=== PATIENT | male | born 1960 | race Caucasian/White ===

== ENCOUNTER 2020-09-15 00:45 | Outpatient (CLI) | payer OTHER, SELFPAY ==
[2020-09-15 20:28] LABS: SARS-CoV-2 RNA PCR Negative
== END 2020-09-15 00:46 | disposition home or self-care (01) ==
LOC: ANHCOVIDDT 00:45
PROVIDERS: PCP Family Medicine Sports Medicine; Visit Provider Internal Medicine Gastroenterology
DX: Z01.812 Encounter for preprocedural laboratory examination (principal); Z20.828 Contact with and (suspected) exposure to other viral communicable diseases
CPT/HCPCS: 87635; C9803; U0003

== ENCOUNTER 2020-09-18 01:06 | Day surgery (SDC) | payer OTHER, SELFPAY ==
[2020-09-12 15:08] VITALS: BMI 36.8
[2020-09-18 09:26] VITALS: BP 128/73; PULSE 65; RESP 18; TEMP 36.5; O2SAT 94; BMI 38.1
[2020-09-18] MEDS: LACTATED RINGERS 1,000 ML 150 ML IV CONT (09:36)
--- NOTE | 2020-09-18 09:43 | P.PNAN_ITS ---
Anes - Initial Pre Proc Eval Procedure: Operation Date: 09/18/20 10:00 Proposed Procedures p Screening Colonoscopy - Thomas Hadley MD Date/Time: 09/18/20 09:43 Surgeon: Thomas Hadley MD Pre Op Diagnosis: Neoplasm Screening,Hx Of Colon Polyps Patient Data Age: 60 Gender: M Height: 5 ft 9 in Weight: 117.1 kg Last Vital Signs Temp 36.5 C 09/18/20 09:26 Pulse 65 09/18/20 09:26 Resp 18 09/18/20 09:26 BP 128/73 09/18/20 09:26 Pulse Ox 94 09/18/20 09:26 Allergies Allergy/AdvReac Type Severity Reaction Status Date / Time No Known Allergies Allergy Unverified 09/18/20 09:24 Home Medications Medication Instructions Recorded Confirmed Type atorvastatin 10 mg PO DAILY 09/12/20 09/12/20 History lisinopril-hydrochlorothiazide 1 tablet PO DAILY 09/12/20 09/12/20 History Patient hx anesthesia problems: none Family hx anesthesia problems: none [facility] Past Medical History Medical History Hyperlipidemia Hypertension SHWETA (obstructive sleep apnea) Social History Social History Smoking packs per day: 1 Smoking cigarettes per day: 20.0 Years smoked: 20 Smoking pack-years: 20.00 Smoking status: Former smoker Tobacco type: cigarettes Alcohol intake: never Substance use: never Substance use type: does not use Living arrangements: with family Spiritual care concerns: No Anes - Eval Final PreProcedure Day of Procedure 09/18/20 09:43 Patient weight: obese Heart: regular rate and rhythm Lungs: clear to auscultation Airway: Mallampati scale class II Neurological: alert and oriented Last oral intake: >/= 8 hours ASA classification: III Emergent: no Anesthetic plan: proceed Anesthesia type and monitoring: general GIVS and standard monitoring Informed Consent: The patient's anesthetic plan and its attendant risks and benefits were discussed with the patient/family/POA. Questions were solicited and answers provided to the satisfaction of the patient/family/POA.
--- NOTE | 2020-09-18 09:44 | P.CONGI_ITS ---
Assessment and Plan Assessment and plan (1) History of colon polyps: Code(s): Z86.010 - Personal history of colonic polyps Status: Acute Assessment and Plan: Patient has a history of colon polyps. Plan is for surveillance colonoscopy now and at intervals in the future. This will depend on findings at time of endoscopy. GI Consult Note Consult date/time: 09/18/20 09:44 HPI: Riaz Chavez Jr. is a 60 year old male Seen in evaluation at the request of Dr. Baez . patient presents for follow-up colonoscopy. Patient had multiple adenomatous colon polyps removed from the colon 4 years ago. Patient's current weight appetite bowel movements are normal. Patient denies a bdominal pain. His family history is noncontributory. Review of Systems Review of Systems: All systems reviewed & are unremarkable except as noted in HPI and below PMFSH Past Medical History Medical History Hyperlipidemia Hypertension SHWETA (obstructive sleep apnea) Social History Social History Smoking packs per day: 1 Smoking cigarettes per day: 20.0 Years smoked: 20 Smoking pack-years: 20.00 Smoking status: Former smoker Tobacco type: cigarettes Alcohol intake: never Substance use: never Substance use type: does not use Living arrangements: with family Spiritual care concerns: No Meds Home Medications and Allergies Home Medications Medication Instructions Recorded Confirmed Type atorvastatin 10 mg PO DAILY 09/12/20 09/12/20 History lisinopril-hydrochlorothiazide 1 tablet PO DAILY 09/12/20 09/12/20 History Allergies Allergy/AdvReac Type Severity Reaction Status Date / Time No Known Allergies Allergy Unverified 09/18/20 09:24 Vital Signs Vital Signs - 24 hr 09/18/20 09:26 Temperature 97.7 F Pulse Rate 65 Respiratory Rate 18 Blood Pressure 128/73 Pulse Oximetry 94 Exam Narrative: Exam Narrative: Physical exam reveals patient to be alert. Vital signs stable. HEENT exam unremarkable. Lungs are clear to auscultation and percussion. Heart is without murmur or extra sounds. Abdominal exam bowel sounds are present soft nontender with no hepatosplenomegaly. Digital external rectal exam is normal.
[2020-09-18 10:49] VITALS: BP 122/77; PULSE 67; RESP 21; O2SAT 93
[2020-09-18 10:59] VITALS: BP 100/66; PULSE 61; RESP 21; O2SAT 95
[2020-09-18 12:45] VITALS: BP 109/73; PULSE 57; RESP 21; O2SAT 95
== END 2020-09-18 11:27 | disposition home or self-care (01) ==
PROVIDERS: PCP Family Medicine Sports Medicine; Visit Provider Internal Medicine Gastroenterology
PROC: 0DJD8ZZ Inspection of Lower Intestinal Tract, Via Natural or Artificial Opening Endoscopic (ICD-10-PCS; CPT 45378; principal; 2020-09-18 10:00)
DX: Z12.11 Encounter for screening for malignant neoplasm of colon (principal); Z86.010 Personal history of colon polyps; E78.5 Hyperlipidemia, unspecified; I10 Essential (primary) hypertension; G47.33 Obstructive sleep apnea (adult) (pediatric); Z87.891 Personal history of nicotine dependence; K64.8 Other hemorrhoids
CPT/HCPCS: 45378; J7120

== ENCOUNTER 2022-03-06 10:10 | Emergency (ER) | payer OTHER, SELFPAY ==
--- NOTE | 2022-03-06 10:18 | ED.WOUNDLAC ---
HPI - Wound/Laceration General Chief Complaint: Skin/Abscess/Foreign Body Stated Complaint: Lac on right hand thumb Time Seen by Provider: 03/06/22 10:38 Source: patient and RN notes reviewed Mode of arrival: ambulatory Limitations: no limitations History of Present Illness HPI narrative: 61-year-old male presents concern for a laceration to the right first digit. Reports he sustained the injury just prior to arrival when he was lifting a piece of sheet metal and fell causing the sheet-metal to slip. He denies decree sensation, strength, range of motion in the digit. He reports he is not up-to-date on his tetanus vaccination. Related Data Home Medications Medication Instructions Recorded Confirmed atorvastatin 10 mg PO DAILY 09/12/20 03/06/22 lisinopril-hydrochlorothiazide 1 tablet PO DAILY 09/12/20 03/06/22 Allergies Allergy/AdvReac Type Severity Reaction Status Date / Time No Known Allergies Allergy Unverified 03/06/22 10:33 Review of Systems Review of Systems: CONSTITUTIONAL: Denies malaise, chills, sweats, or fever. SKIN: Reports laceration to the right first digit MUSCULOSKELETAL: Denies muscle skeletal pain NEUROLOGIC: Denies numbness, weakness All systems reviewed & are unremarkable except as noted in HPI and below PMFSH Past Medical History Medical History Hyperlipidemia Hypertension SHWETA (obstructive sleep apnea) Social History Social History Smoking packs per day: 1 Smoking cigarettes per day: 20.0 Years smoked: 20 Smoking pack-years: 20.00 Smoking status: Former smoker Tobacco type: cigarettes Alcohol intake: never Substance use: never Substance use type: does not use Spiritual care concerns: No Comments At time of signature, agree with nursing past medical, surgical, social and family history. There is no relevant family history pertinent to the presenting complaint Exam Narrative: GENERAL: Well-appearing, well-nourished, and in no acute distress. HEAD: Normocephalic EYES: PERRLA, conjunctivae clear NECK: Supple. CHEST: Speaks in full sentences. No respiratory distress. HEART: Regular rate and rhythm. Normal and equal peripheral pulses. EXTREMITIES: First digit of right hand has normal strength and sensation. 5/5 strength with digit flexion, extension. Range of motion normal. No clubbing, cyanosis, or edema noted. No tenderness. Normal digital cascade with flexion of fingers, median, ulnar and radial nerve intact. Normal sensation of each side of finger. Can perform 'okay' sign, 'cross over finger test of index and middle fingers' and 'thumbs up' sign. No scissoring. Normal thumb opposition. Good capillary refill and radial pulse. Distal capillary refill less than 3 seconds. Patient is right/left hand dominant SKIN: Warn, dry, intact, pink. No rash. 2.5 cm irregular shaped laceration into the subcutaneous tissue noted to the lateral first digit of the right hand NEURO: Alert and oriented x3. PSYCH: Normal mood and affect Course Course Emergency Course: Patient is aware of diagnosis, understands and agrees to treatment plan. Anticipatory guidance given. Patient agrees to follow-up as directed and is aware of reasons to seek care at the emergency department. Portions of this record may have been created with voice recognition software Level of Care: Express Care Visit Vital Signs Vital signs: Vital Signs Temperature 96.5 F L 03/06/22 10:25 Pulse Rate 64 03/06/22 10:25 Respiratory Rate 16 03/06/22 10:25 Blood Pressure 150/87 H 03/06/22 10:25 Pulse Oximetry 98 03/06/22 10:25 Temperature 96.5 F L 03/06/22 10:25 Pulse Rate 64 03/06/22 10:25 Respiratory Rate 16 03/06/22 10:25 Blood Pressure 150/87 H 03/06/22 10:25 Pulse Oximetry 98 03/06/22 10:25 Reviewed. Procedures Laceration Laceration 1: Date: 03/06/22
[2022-03-06 10:25] VITALS: BP 150/87; PULSE 64; RESP 16; TEMP 35.8; O2SAT 98
[2022-03-06] MEDS: TETANUS,DIPHTHERIA,AC PERTUSSIS ADULT (0.5 ML) BOOSTRIX IM (10:46)
== END 2022-03-06 11:29 | disposition home or self-care (01) ==
PROVIDERS: Emergency Provider Nurse Practitioner
DX: S61.011A Laceration without foreign body of right thumb without damage to nail, initial encounter (principal); W45.8XXA Other foreign body or object entering through skin, initial encounter; Z23 Encounter for immunization; Z87.891 Personal history of nicotine dependence; E78.5 Hyperlipidemia, unspecified; I10 Essential (primary) hypertension; G47.33 Obstructive sleep apnea (adult) (pediatric)
CPT/HCPCS: 12001; 90471; 90715; 99212; G0463

== ENCOUNTER 2022-03-18 08:29 | Emergency (ER) | payer OTHER, SELFPAY ==
--- NOTE | 2022-03-18 08:30 | ED.SKABFB ---
HPI - Skin/Abscess/Foreign Bdy General Chief complaint: Skin/Abscess/Foreign Body Stated complaint: remove stitches Time Seen by Provider: 03/18/22 08:30 Source: patient and RN notes reviewed History of Present Illness HPI narrative: Patient is a 61-year-old male who presents the urgent care for suture removal to the right thumb. Patient states that he had been placed at our facility on the after cutting his thumb on a piece of metal. Patient states that he has been keeping it covered while at work and cleaning it out with peroxide. Patient is also applied Neosporin to the wound. No other acute complaints. No acute distress noted. Patient aware of the plan of care. Some parts of this dictation were generated by voice recognition software and may contain typographical and/or grammatical inaccuracies. Related Data Home Medications Medication Instructions Recorded Confirmed atorvastatin 10 mg PO DAILY 09/12/20 03/06/22 lisinopril-hydrochlorothiazide 1 tablet PO DAILY 09/12/20 03/06/22 Allergies Allergy/AdvReac Type Severity Reaction Status Date / Time No Known Allergies Allergy Unverified 03/06/22 10:33 Review of Systems Review of Systems: CONSTITUTIONAL: Denies fever, chills, or sweats. EYES: Denies visual changes, redness, or discharge. ENT: Denies rhinorrhea, congestion, sore throat, or otalgia. CARDIOVASCULAR: Denies chest pain, palpitations, or edema. RESPIRATORY: Denies cough or dyspnea. GASTROINTESTINAL: Denies abdominal pain, nausea, vomiting, or diarrhea. GENITOURINARY: Denies dysuria or hematuria. SKIN: Reports for suture removal to the right thumb MUSCULOSKELETAL: Denies back pain, joint pain, or myalgia. NEUROLOGIC: Denies headache, numbness, or weakness. All other systems reviewed are negative, except as documented in HPI. [facility] Past Medical History Medical History Hyperlipidemia Hypertension SHWETA (obstructive sleep apnea) Social History Social History Smoking packs per day: 1 Smoking cigarettes per day: 20.0 Years smoked: 20 Smoking pack-years: 20.00 Smoking status: Former smoker Tobacco type: cigarettes Alcohol intake: never Substance use: never Substance use type: does not use Spiritual care concerns: No Comments At the time of my signature, I reviewed and agree with the nursing past medical, surgical, social, and family history. There is no relevant family history pertinent to the patient complaint. Exam Narrative: GENERAL: This is a well-nourished, well-developed patient, in no apparent distress. HEAD: normocephalic, atraumatic. EYES: PERRL. Sclera clear/white. Vision is grossly intact. EARS: External ears normal NOSE: External nose normal with no obvious nasal discharge, nares without redness, no rhinorrhea. THROAT: Mucous membranes moist NECK: Neck supple, SKIN: 8 sutures approximating a right thumb laceration NEURO: awake, alert, and oriented to person, place and time. There were no obvious focal neurologic abnormalities. EXTREMITIES: No clubbing, cyanosis, or edema. Course Course Level of Care: Express Care Visit Vital Signs Vital signs: Vital Signs Temperature 97.9 F 03/18/22 08:36 Pulse Rate 65 03/18/22 08:36 Respiratory Rate 20 03/18/22 08:36 Blood Pressure 126/81 03/18/22 08:36 Pulse Oximetry 98 03/18/22 08:36 Temperature 97.9 F 03/18/22 08:36 Pulse Rate 65 03/18/22 08:36 Respiratory Rate 20 03/18/22 08:36 Blood Pressure 126/81 03/18/22 08:36 Pulse Oximetry 98 03/18/22 08:36 Reviewed Procedures Other Procedure Procedure 1: Other Procedure: Sutures removed from the right thumb. Wound approximated well. No complications or bleeding. 8 sutures removed. No signs or symptoms of infection. MDM - Skin/Abscess/Foreign Bdy MDM Narrative Medical decision making narrative: Advised the patien
[2022-03-18 08:36] VITALS: BP 126/81; PULSE 65; RESP 20; TEMP 36.6; O2SAT 98
[2022-03-18 08:48] VITALS: BP 126/81; PULSE 65; RESP 20; TEMP 36.6; O2SAT 98
== END 2022-03-18 09:07 | disposition home or self-care (01) ==
PROVIDERS: Emergency Provider Nurse Practitioner Family
DX: Z48.02 Encounter for removal of sutures (principal); E78.5 Hyperlipidemia, unspecified; I10 Essential (primary) hypertension; Z87.891 Personal history of nicotine dependence
CPT/HCPCS: 99211; G0463

== ENCOUNTER 2023-12-01 11:26 | Emergency (ER) | payer OTHER, SELFPAY ==
--- NOTE | ~2023-12-01 | CT_ITS ---
EXAMINATION: CTA chest PE protocol DATE: 12/01/2023 14:44 INDICATION: Chest pain, shortness of breath and elevated d-dimer. TECHNIQUE: Computed tomography (CT) pulmonary angiogram of the chest was performed with 100 mL Omnipa que-350 intravenous contrast. Additional 3D reconstructions utilizing coronal maximum intensity proje ction (MIP) were performed. Automated exposure control and iterative reconstruction technique were em ployed. The dose-length product was 962.27 mGy-cm. COMPARISON: None FINDINGS: Excellent contrast opacification of the pulmonary arteries. There is mild streak artifact from dense contrast in the superior vena cava and right atrium. Mild scattered respiratory motion artifact which does not significantly limit evaluation. No pulmonary embolism. Scattered centrilobular nodules and patchy consolidation throughout both lungs most prominent in the basilar lower lobes with appearance and distribution most consistent with multifocal pneumonia. No septal line thickening to suggest pulm onary edema. No pleural effusion. Heart size is normal. Small amount of atherosclerotic coronary avani ry calcific location. Thoracic aorta is normal in caliber with no dissection. No pathologically enlar ged thoracic lymphadenopathy. Diffuse hepatic steatosis. There are bridging osteophytes at multiple l evels consistent with diffuse idiopathic skeletal hyperostosis (DISH). IMPRESSION: 1. No pulmonary embolism. 2. Scattered bilateral centrilobular nodules and patchy consolidation in both lungs most consistent w ith multifocal pneumonia. Reviewed, dictated and finalized at location A. [facility] [employer] HE[facility] CONSULTANT IMPRESSION: 1. No pulmonary embolism. 2. Scattered bilateral centrilobular nodules and patchy consolidation in both l ungs most consistent with multifocal pneumonia.
--- NOTE | ~2023-12-01 | XR_ITS ---
Clinical Indication: Shortness of breath, cough PA and lateral views of the chest: Comparison: None Findings: There is hazy left upper lobe airspace disease. No pleural effusion.. Cardiomediastinal si lhouette is within normal limits. Bones and soft tissues are unremarkable. Impression: Hazy left upper lobe airspace disease. Correlate clinically for pneumonia. Reviewed, dictated and finalized at [facility]. OILER Impression: Hazy left upper lobe airspace disease. Correlate clinically for pneumonia.
[2023-12-01 11:28] VITALS: BP 157/103; PULSE 83; RESP 18; TEMP 36.7; O2SAT 97
[2023-12-01 11:47] VITALS: O2SAT 96
--- NOTE | 2023-12-01 12:48 | ED.URI ---
HPI - URI/Sore Throat General Chief Complaint: Upper Respiratory Infection Stated Complaint: URI Time Seen by Provider: 12/01/23 12:29 Source: patient Mode of arrival: ambulatory Limitations: no limitations History of Present Illness HPI Narrative: Riaz is a 63-year-old male patient presenting to the ER today with complaints of cough times 2-3 weeks. He reports he is bringing up some phlegm but does not recall the color. Has been on 2 rounds of azithromycin and a albuterol inhaler. He reports he was diagnosed with bronchitis at that time. States that the symptoms improved while on the medicines however now he is having some shortness of breath with lying flat at night and feels like he can not catch his breath. Denies any chest pain. Denies any fever or chills. MD elicited complaint: sore throat and nasal congestion Related Data Home Medications Medication Instructions Recorded Confirmed atorvastatin 10 mg tablet 10 mg PO DAILY 09/12/20 03/18/22 lisinopril 10 1 tablet PO DAILY 09/12/20 03/18/22 mg-hydrochlorothiazide 12.5 mg tablet Allergies Allergy/AdvReac Type Severity Reaction Status Date / Time No Known Allergies Allergy Unverified 12/01/23 11:53 Review of Systems Review of Systems: Pertinent positives per HPI. Patient denies any fever, chills, rash, headache, visual changes, dizziness, cough, chest pain, palpitations, nausea, vomiting, diarrhea, constipation, abdominal pain, or any urinary issues. PMFSH Past Medical History Medical History Hyperlipidemia Hypertension SHWETA (obstructive sleep apnea) Social History Social History Smoking packs per day: 1 Smoking cigarettes per day: 20.0 Years smoked: 20 Smoking pack-years: 20.00 Smoking status: Former smoker Tobacco type: cigarettes Alcohol intake: never Substance use: never Substance use type: does not use Living arrangements: with family Spiritual care concerns: No Comments At the time of my signature, I reviewed and agree with the nursing past medical, surgical, social, and family history. There is no relevant family history pertinent to the patient complaint. Exam Narrative: General: Well-developed, well nourished, in no apparent distress Head: Normocephalic, atraumatic Eyes: Pupils equally round and reactive to light bilaterally, EOM intact, sclera and conjunctive clear, no discharge, lids normal Ears: TMs intact and clear, ear canals clear, no drainage, grossly hearing normal. Nose: Nares patent, no discharge, no inflammation, no sinus tenderness. Mouth: Oral pharynx without lesions or masses, good dentition, MMM. Postnasal drip Neck: Supple, trachea midline, no enlargement of anterior or posterior cervical nodes, no thyroid masses or goiter palpable. Cardio: Regular rate and rhythm, s1 and s2 normal, no murmur appreciated. Resp: Crackles heard over the left and right lower lobes, no rhonchi, wheezing or rubs Course Course Emergency Course: Portions of this record may have been created with voice recognition software. Vital Signs Vital signs: Vital Signs Temperature 36.7 C 12/01/23 11:28 Pulse Rate 83 12/01/23 11:28 Respiratory Rate 18 12/01/23 11:28 Blood Pressure 157/103 H 12/01/23 11:28 Pulse Oximetry 97 12/01/23 11:28 Oxygen Delivery Room Air 12/01/23 11:28 Temperature 36.7 C 12/01/23 11:28 Pulse Rate 83 12/01/23 11:28 Respiratory Rate 18 12/01/23 11:28 Blood Pressure 157/103 H 12/01/23 11:28 Pulse Oximetry 96 12/01/23 11:47 Oxygen Delivery Room Air 12/01/23 11:47 Vital signs reviewed MDM - URI/Sore Throat MDM Narrative Medical decision making narrative: At the time of visit patient is resting comfortably on the exam table. Patient appears to be nontoxic. EKG: Shows normal sinus rhythm with a heart rate of 64 be
--- NOTE | 2023-12-01 12:49 | ECG_ITS ---
Measurements Intervals [place] Rate: 64 P: 8 GA: 142 QRS: 6 QRSD: 92 T: 52 QT: 382 QTc: 397 Interpretive Statements SINUS RHYTHM BASELINE ARTIFACT- I, III, AVR, AVL NORMAL ECG NO PREVIOUS ECG AVAILABLE FOR COMPARISON Electronically Signed On 12-01-2023 14:40:55 BOARD CERTIFIED FAMILY PHYSICIAN by Cecilio Berg D.O.
[2023-12-01 13:47] LABS: Basophils Percent Auto 0.5 % (0.2-1.2); Eosinophils Absolute Auto 0.1 K/mm3 (0-0.3); Eosinophils Percent Auto 1.2 % (0-4.4); Hematocrit 44.1 % (42.0-52.0); Hemoglobin 15.1 g/dL (14.0-18.0); Immature Granulocyte Absolute 0.06 K/mm3 (0.00-0.031); Immature Granulocyte Percent A 0.8 % (0-0.5); Lymphocytes Absolute Auto 1.78 K/mm3 (0.9-3.2); Lymphocytes Percent Auto 23.6 % (18.3-44.2); Mean Corpuscular HGB Conc 34.2 g/dl (32-36); Mean Corpuscular Hemoglobin 31.1 pg (26-34); Mean Corpuscular Volume 90.9 fl (80-100); Mean Platelet Volume 8.6 fl (7.4-10.4); Monocytes Percent Auto 13.4 % (2.6-8.5); Neutrophils Absolute Auto 4.6 K/mm3 (1.3-6.7); Neutrophils Percent Auto 60.5 % (45.5-73.1); Platelet Count Result 537 k/mm3 (150-375); Red Blood Count 4.85 M/mm3 (4.6-6.20); White Blood Count 7.5 K/mm3 (4.5-10.0)
[2023-12-01 14:00] LABS: Partial Thromboplastin Time 32.1 SECONDS (22.3-36.8)
[2023-12-01 14:01] LABS: INR 1.1; Prothrombin Time 14.4 Seconds (11.1-14.7)
[2023-12-01 14:05] LABS: Alanine Aminotransferase 60 U/L (6-50); Albumin Level 3.8 g/dL (3.5-5.1); Alkaline Phosphatase 73 U/L (38-126); Anion Gap 5 mmol/L (8-16); Aspartate Amino Transferase 30 U/L (17-59); Bilirubin,Total 0.8 mg/dL (0.2-1.3); Blood Urea Nitrogen 10 mg/dL (9-20); Calcium 8.6 mg/dL (8.4-10.2); Carbon Dioxide 27 mmol/L (22-30); Chloride 104 mmol/L (98-107); Estimated CRCL calculation 138 ml/min; Estimated Glomerular Filt Rate > 60; Glucose 98 mg/dL (65-110); Potassium 4.4 mmol/L (3.4-5.0); Sodium 136 mmol/L (137-145)
[2023-12-01 14:16] LABS: NT Pro B Type Natriuretic Pept 259 pg/mL (19.9-100); Troponin I < 0.012 ng/mL (0.000-0.034)
[2023-12-01 14:32] VITALS: BP 117/77; PULSE 67; RESP 18; O2SAT 97
[2023-12-01 15:49] VITALS: BP 118/73; PULSE 72; RESP 18; O2SAT 96
== END 2023-12-01 15:53 | disposition home or self-care (01) ==
PROVIDERS: Emergency Provider Nurse Practitioner Family
DX: J18.9 Pneumonia, unspecified organism (principal); I10 Essential (primary) hypertension; E78.5 Hyperlipidemia, unspecified; G47.33 Obstructive sleep apnea (adult) (pediatric); Z87.891 Personal history of nicotine dependence
CPT/HCPCS: 36415; 71046; 71275; 80053; 83880; 84484; 85025; 85380; 85610; 85730; 93005; 99284; Q9967